=== PATIENT | female | born 1990 | race Caucasian/White ===

== ENCOUNTER 2020-01-03 10:45 | Emergency (ER) | payer OTHER, SELFPAY ==
[2020-01-03 11:56] VITALS: BP 138/93; PULSE 80; RESP 16; TEMP 36.9; O2SAT 100
--- NOTE | 2020-01-03 11:58 | ED.DENTAL ---
HPI - Dental/Oral General Chief complaint: Dental/Oral Stated complaint: broke tooth think its infected Time Seen by Provider: 01/03/20 11:58 Related Data Home Medications Medication Instructions Recorded Confirmed No Home Medications 01/03/20 01/03/20 Allergies Allergy/AdvReac Type Severity Reaction Status Date / Time No Known Allergies Allergy Mild Verified 08/07/08 14:02 Review of Systems Review of Systems: All systems reviewed & are unremarkable except as noted in HPI and below Constitutional: Constitutional: Denies chills and Denies fever(s) PMFSH Past Medical History Medical History (Updated 01/03/20 @ 12:23 by Harris Gaston MD) No acute medical problems Surgical History Surgical History (Updated 01/03/20 @ 12:01 by Harris Gaston MD) No history of previous surgery Social History Social History (Updated 01/03/20 @ 12:01 by Harris Gaston MD) Smoking status: Never smoker Alcohol intake: never Substance use: never Gender identity (if verbalized by the patient): Female Exam Const: General: healthy appearing, no acute distress and alert Nutritional Appearance: well nourished and thin Orientation/consciousness: patient oriented x3 Other: Female nurse in room during examination. HENMT: Head: normal to inspection Ears: external ears normal General nose exam: Normal external nose present Face and sinus: normal facial exam Teeth and gingiva: abnormal tooth and associated gingiva lower left first molar and poor dentition Eyes: Conjunctivae: conjunctivae normal Pupils: Equal, round and reactive pupils present EOM: EOMs intact bilaterally Resp: Effort & Inspection: normal respiratory effort Auscultation: clear to auscultation bilaterally Cardio: Rate: regular rate Rhythm: regular rhythm GI: Auscultation: normal bowel sounds Back/Spine/Pelvis: Cervical Spine: cervical ROM normal Thoracic/Lumbar Spine: thoraco-lumbar ROM normal Skin: General skin exam: normal color Rashes: no rashes Neuro: General: patient oriented x3, moves all extremities and no focal motor deficits Speech: normal speech Extrem: General: normal to inspection and no clubbing, cyanosis or edema Psych: Appearance: grossly normal and well kempt Mental Status: mental status grossly normal Affect: normal affect Attitude: cooperative Thought content: Yes Normal thought content present Course Vital Signs Vital signs: Vital Signs Temperature 36.9 C 01/03/20 11:56 Pulse Rate 80 01/03/20 11:56 Respiratory Rate 16 01/03/20 11:56 Blood Pressure 138/93 H 01/03/20 11:56 Pulse Oximetry 100 01/03/20 11:56 Temperature 36.9 C 01/03/20 11:56 Pulse Rate 80 01/03/20 11:56 Respiratory Rate 16 01/03/20 11:56 Blood Pressure 138/93 H 01/03/20 11:56 Pulse Oximetry 100 01/03/20 11:56 Discharge Plan Discharge Clinical Impression: Dental caries, Toothache Patient Disposition: Home, Self-Care Condition: Stable Instructions: Toothache (ED) Additional Instructions: Get into dentist to have the tooth extracted. Follow-up with your primary care for further pain management if needed. Use Tylenol Motrin [id number]. Use dental balls as needed. Prescriptions: New amoxicillin 500 mg capsule 500 mg PO TID Qty: 30 RF: 0 No Action No Home Medications RF: 0 Follow-up/Referrals: Kary,KASANDRA Flores [Primary Care Provider] - Stand Alone Forms: Work/School Release IP Time of Disposition: 12:23
--- NOTE | 2020-01-03 12:19 | PC.NURSE ---
report given to margaret Torres rn
== END 2020-01-03 12:36 | disposition home or self-care (01) ==
PROVIDERS: Emergency Provider Emergency Medicine; PCP Physician Assistant
DX: K02.9 Dental caries, unspecified (principal); K08.89 Other specified disorders of teeth and supporting structures
CPT/HCPCS: 99283; A9270